=== PATIENT | male | born 1950 | race Caucasian/White ===

== ENCOUNTER → 2016-07-15 | Outpatient (CLI) | payer OTHER ==
--- NOTE | 2016-07-15 16:03 | DX ---
Chest, PA and Lateral, 3 views History: Chronic cough, fever of unknown origin Comparison: None Findings: Mild bronchial wall thickening a and mildly prominent lung volumes are consistent with airw ays disease and/or underlying COPD. There is no focal infiltrate or consolidation. Heart size is rela tively small consistent with the prominent lung volumes. There is no adenopathy or mass lesion. There is no pleural effusion. There is degenerative narrowing of the T12-L1 disk space. Bones are otherwis e unremarkable for age. Impression: Suspect underlying COPD with possible active airways disease. No pneumonia identified.
== END ==
LOC: BMCIMAGING 14:57
PROVIDERS: ATTEND Internal Medicine
DX: R05 Cough (principal); R50.9 Fever, unspecified; Z96.659 Presence of unspecified artificial knee joint

== ENCOUNTER → 2017-04-20 | Outpatient (CLI) | payer OTHER | LOC: BMCIMAGING 14:22 | PROVIDERS: ATTEND Orthopaedic Surgery Hand Surgery | DX: M19.032 Primary osteoarthritis, left wrist (principal) ==